=== PATIENT | male | born 1975 | race Caucasian/White ===

== ENCOUNTER 2016-12-11 09:45 | Outpatient (CLI) | payer OTHER ==
[2016-12-11 10:58] LABS: ALT (SGPT) 65 U/L (8-55); AST (SGOT) 40 U/L (5-34); Albumin 4.1 g/dL (3.5-5.0); Alkaline Phosphatase 138 U/L (40-150); Anion Gap 16 mmol/L (10-20); BUN (Urea Nitrogen) 12 mg/dL (8.9-20.6); Bilirubin, Total 0.4 mg/dL (0.2-1.2); Calc. Creatinine Clearance 0 mL/min (70-130); Calcium 9.3 mg/dL (7.8-10.44); Carbon Dioxide 22 mmol/L (22-29); Cardiac Risk 7.5 (Less than 4.5); Chloride 103 mmol/L (98-107); Cholesterol 279 mg/dl (< 200 Desired); Estimated GFR-MDRD 72; Globulin 3.2 g/dL (2.4-3.5); Glucose 99 mg/dL (70-105); HDL Cholesterol 37 mg/dL (>60 Neg Risk); Potassium 4.4 mmol/L (3.5-5.1); Protein, Total 7.3 g/dL (6.0-8.3); Sodium 137 mmol/L (136-145); Triglycerides 461 mg/dL (Less than 150)
--- NOTE | 2016-12-11 12:12 | RAD ---
CERVICAL SPINE 4 VIEWS: HISTORY: Strain that has bothered him for years. COMPARISON: None. FINDINGS: Open mouth odontoid view is normal. Lateral degenerative disk space height loss at C3-4, 4-5, 5-6 w ith osteophyte formation. No acute fracture or malalignment. Moderate left-sided C3-4 and C4-5 and C5-6 neural foraminal narrowing. IMPRESSION: Mild spondylosis as described above. No acute fracture or malalignment. POS: MARLENY
--- NOTE | 2016-12-11 12:39 | RAD ---
THORACIC SPINE TWO VIEWS HISTORY: Strain that has bothered him for years. COMPARISON: None. FINDINGS: No acute fracture or malalignment of the thoracic spine. Vertebral body height and disk spaces are maintained. The paraspinal soft tissues are unremarkable. Mild spondylosis. IMPRESSION: No acute abnormality of the thoracic spine. Very mild spondylosis. POS: ANILA
[2016-12-11 13:47] LABS: LDL Cholesterol, Calculated 160 mg/dL
== END 2016-12-11 09:46 | disposition home or self-care (01) ==
LOC: MADLABBHPM 09:45 → EDSTATUS 09:50
PROVIDERS: ATTEND Family Medicine
DX: Z13.1 Encounter for screening for diabetes mellitus (principal); Z13.220 Encounter for screening for lipoid disorders; M47.812 Spondylosis without myelopathy or radiculopathy, cervical region; S46.812A Strain of other muscles, fascia and tendons at shoulder and upper arm level, left arm, initial encounter
CPT/HCPCS: 36415; 72050; 72070; 80053; 80061

== ENCOUNTER 2017-10-07 11:01 | Outpatient (CLI) | payer BC ==
[2017-10-07 11:49] LABS: Cardiac Risk 5.7 (Less than 4.5)
== END 2017-10-07 11:02 ==
LOC: MADLABBHPM 11:01
PROVIDERS: ATTEND Family Medicine
DX: E78.4 Other hyperlipidemia (principal)
CPT/HCPCS: 36415; 80061